=== PATIENT | female | born 1995 | race Caucasian/White ===

== ENCOUNTER 2017-06-19 13:03 | Emergency (ER) | payer MEDICAID ==
[~2017-06-19] VITALS: Ht 160 cm; Wt 67.1 kg
[2017-06-19 13:10] VITALS: Ht 160 cm; Wt 67.1 kg
[2017-06-19 13:43] LABS: BASOPHIL % 0.2 % (0-2); PLATELET COUNT 303 x10^3mcL (130-400); RED CELL DISTRIBUTION WIDTH 13.1 % (11.5-14.5)
[2017-06-19 13:49] LABS: CALCIUM 8.3 mg/dL (8.5-10.1); CARBON DIOXIDE 24.9 mmol/L (21-32); CHLORIDE SERUM 105 mmol/L (98-107); CREATININE SERUM 0.5 mg/dL (0.6-1.0); GFR1 > 60 mL/min; GLUCOSE SERUM 97 mg/dL (74-106); POTASSIUM SERUM 3.6 mmol/L (3.5-5.1); SODIUM SERUM 134 mmol/L (136-145)
[2017-06-19 14:33] LABS: UA SPECIFIC GRAVITY 1.025 (1.005-1.035); microscopic required? YES; urine erythrocyte NEGATIVE (NEGATIVE)
[2017-06-19 16:47] VITALS: BP 105/69
== END 2017-06-19 16:47 | disposition short-term general hospital (02) ==
LOC: ED 13:03
PROVIDERS: Emergency Medicine
DX: O20.0 Threatened abortion (principal); Z3A.27 27 weeks gestation of pregnancy
CPT/HCPCS: Q0092